=== PATIENT | male | born 1960 ===

== ENCOUNTER → 2018-03-06 | Outpatient (CLI) | payer MEDICARE ==
--- NOTE | 2018-03-06 13:22 | XR ---
EXAMINATION TYPE: XR chest 2V DATE OF EXAM: 03/06/2018 COMPARISON: 07/13/2014 HISTORY: Shortness of breath TECHNIQUE: Frontal and lateral views of the chest are obtained. FINDINGS: Scattered senescent parenchymal changes noted. No evidence for infiltrate. No evidence for atelectasis. Heart size is stable. Mediastinal structures are stable and grossly unremarkable. No evidence for hilar prominence. Degenerative changes dorsal spine. IMPRESSION: 1. No evidence for acute pulmonary disease.
== END | disposition home or self-care (01) ==
LOC: RADXRMAIN 12:46
PROVIDERS: ATTEND Family Medicine
DX: Z77.090 Contact with and (suspected) exposure to asbestos (principal)
CPT/HCPCS: 71046

== ENCOUNTER 2018-10-06 16:50 | Emergency (ER) | payer MEDICARE ==
[2018-10-06 17:28] VITALS: RESP 18
[2018-10-06 18:27] LABS: Basophils # (A) 0.1 k/uL (0-0.2); Basophils % (A) 1 %; Eosinophils # (A) 0.2 k/uL (0-0.7); Eosinophils % (A) 1 %; HCT 47.3 % (39.0-53.0); HGB 15.6 gm/dL (13.0-17.5); Lymphocytes # (A) 3.3 k/uL (1.0-4.8); Lymphocytes % (A) 21 %; MCH 30.4 pg (25.0-35.0); MCHC 33.1 g/dL (31.0-37.0); MCV 92.1 fL (80.0-100.0); Monocytes # (A) 0.9 k/uL (0-1.0); Monocytes % (A) 6 %; Neutrophils % (A) 70 %; Platelet Count 277 k/uL (150-450); RBC 5.14 m/uL (4.30-5.90); RDW 13.6 % (11.5-15.5); WBC 15.8 k/uL (3.8-10.6)
[2018-10-06 18:37] LABS: ALT 45 U/L (21-72); AST 30 U/L (17-59); Albumin 4.5 g/dL (3.5-5.0); Alkaline Phosphatase 78 U/L (38-126); Anion Gap 12 mmol/L; Blood Urea Nitrogen 10 mg/dL (9-20); Calcium 9.3 mg/dL (8.4-10.2); Carbon Dioxide 24 mmol/L (22-30); Chloride 102 mmol/L (98-107); Glucose 181 mg/dL (74-99); Potassium 4.7 mmol/L (3.5-5.1); Sodium 138 mmol/L (137-145); Total Bilirubin 0.3 mg/dL (0.2-1.3); Total Protein 7.3 g/dL (6.3-8.2)
[2018-10-06 18:56] VITALS: BP 166/90; PULSE 67; TEMP 98
--- NOTE | 2018-10-07 01:14 | ED ---
General Adult HPI - General Chief complaint: Recheck/Abnormal Lab/Rx Stated complaint: hypertension Source: patient, RN notes reviewed, old records reviewed Mode of arrival: EMS Limitations: no limitations - History of Present Illness Initial comments: 58-year-old male patient passed history including cardiovascular disease presented to ED via EMS with complaint of 30 minutes of acute eyes watering, rhinitis, salivation mouth. Patient was startled by these acute symptoms. Patient has previously had approximately 3 days of sinusitis symptoms including , sinus pressure, rhinitis. Patient denies any other symptoms during this episode including, chest pain, shortness of breath, difficulty breathing, changes in vision, focal weakness, unilateral weakness, abdominal pain, nausea vomiting diarrhea, diaphoresis. Systemic: Pt denies fatigue, myalgia, fever/chills, rash. Pt denies weakness, night sweats, weight loss. Neuro: Pt denies headache, visual disturbances, syncope or pre-syncope. HEENT: Pt denies ocular discharge or irritation, otalgia, rhinorrhea, pharyngitis or notable lymphadenopathy. Cardiopulmonary: Pt denies chest pain, SOB, heart palpitations, dyspnea on exertion. Abdominal/GI: Pt denies abdominal pain, n/v/d. : Pt denies dysuria, burning w/ urination, frequency/urgency. Denies new onset urinary or bowel incontinence. MSK: Pt denies myalgia, loss of strength or function in extremities. - Related Data Home Medications Medication Instructions Recorded Confirmed Aspirin EC [Ecotrin] 325 mg PO HS 07/13/14 10/06/18 Atorvastatin [Lipitor] 80 mg PO HS 07/13/14 10/06/18 Escitalopram [Lexapro] 20 mg PO DAILY PRN 07/13/14 10/06/18 Lisinopril [Zestril] 10 mg PO BID 07/13/14 10/06/18 Metoprolol Tartrate [Lopressor] 25 mg PO BID 07/13/14 10/06/18 Nitroglycerin Sl Tabs [Nitrostat] 0.4 mg SUBLINGUAL Q5M PRN 07/13/14 10/06/18 clonazePAM [KlonoPIN] 0.5 mg PO BID PRN 07/13/14 10/06/18 metFORMIN HCL [Glucophage] 500 mg PO BID 10/06/18 10/06/18 Allergies Allergy/AdvReac Type Severity Reaction Status Date / Time pollen Allergy congestion Uncoded 10/06/18 17:27 Review of Systems ROS Statement: Those systems with pertinent positive or pertinent negative responses have been documented in the HPI. ROS Other: All systems not noted in ROS Statement are negative. Past Medical History Past Medical History: Diabetes Mellitus, Hyperlipidemia, Hypertension, Myocardial Infarction ([place]) History of Any Multi-Drug Resistant Organisms: None Reported Past Surgical History: Heart Catheterization With Stent Past Psychological History: Depression Smoking Status: Current every day smoker Past Alcohol Use History: Occasional Past Drug Use History: Marijuana General Exam - General Exam Comments Initial Comments: Constitutional: NAD, AOX3, Pt has pleasant affect. HEENT: NC/AT, trachea midline, neck supple, no lymphadenopathy. Posterior pharynx non erythematous, without exudates. External ears appear normal, without discharge. Mucous membranes moist. Eyes PERRLA, EOM intact. There is no scleral icterus. No pallor noted. Cardiopulmonary: RRR, no murmurs, rubs or gallops, no JVD noted. Lungs CTAB in anterior and posterior juarez. No peripheral edema. Abdominal exam: Abdomen soft and non-distended. Abdomen non-tender to palpation in all 4 quadrants. Bowel sounds active in LLQ. No hepatosplenomegaly. Neuro: CN II-XII intact. MSK: No unilateral leg swelling. Homans sign negative bilaterally. Posterior tibialis pulse +2 bilaterally. Limitations: no limitations Course Vital Signs 10/06/18 10/06/18 10/06/18 16:50 17:32 18:55 Temperature 97.9 F 98.0 F Pulse Rate 67 69 67 Respiratory 18 18 18 Rate Blood Pressure 184/104 157/81 166/90 O2 Sat by Pulse 96 95 97 Oximetry Medical Decision Making - Medical Decision Making 58-year-old male patient passed history including cardiovascular disease presented to ED via EMS with complaint of 30 minutes of acute eyes watering, rhinitis, salivation mouth. Patient was startled by these acute symptoms. Patient has previously had approximately 3 days of sinusitis symptoms including , sinus pressure, rhinitis. Patient denies any other symptoms during this episode including, chest pain, shortness of breath, difficulty breathing, changes in vision, focal weakness, unilateral weakness, abdominal pain, nausea vomiting diarrhea, diaphoresis. Physical exam of patient did not reveal acute pathology, systems exam including neurological, HEENT, cardiopulmonary, abdominal, muscular skeletal. EKG of patient displayed a normal sinus rhythm, right bundle-branch block, left vesicular block, no concern for acute ischemia. This laboratory investigations, CBC CMP were ordered. Before the labs resulted, patient decided that his previous symptoms do not warrant continued evaluation, signed himself out AMA. Case discussed with Dr. Ramey. - Lab Data Result diagrams: 10/06/18 17:50 10/06/18 17:50 Lab Results 10/06/18 10/06/18 Range/Units 17:50 17:50 WBC 15.8 H (3.8-10.6) k/uL RBC 5.14 (4.30-5.90) m/uL Hgb 15.6 (13.0-17.5) gm/dL Hct 47.3 (39.0-53.0) % MCV 92.1 (80.0-100.0) fL MCH 30.4 (25.0-35.0) pg MCHC 33.1 (31.0-37.0) g/dL RDW 13.6 (11.5-15.5) % Plt Count 277 (150-450) k/uL Neutrophils % 70 % Lymphocytes % 21 % Monocytes % 6 % Eosinophils % 1 % Basophils % 1 % Neutrophils # 11.0 H (1.3-7.7) k/uL Lymphocytes # 3.3 (1.0-4.8) k/uL Monocytes # 0.9 (0-1.0) k/uL Eosinophils # 0.2 (0-0.7) k/uL Basophils # 0.1 (0-0.2) k/uL Sodium 138 (137-145) mmol/L Potassium 4.7 (3.5-5.1) mmol/L Chloride 102 (98-107) mmol/L Carbon Dioxide 24 (22-30) mmol/L Anion Gap 12 mmol/L BUN 10 (9-20) mg/dL Creatinine 0.72 (0.66-1.25) mg/dL Est GFR (CKD-EPI)AfAm >90 (>60 ml/min/1.73 sqM) Est GFR (CKD-EPI)NonAf >90 (>60 ml/min/1.73 sqM) Glucose 181 H (74-99) mg/dL Calcium 9.3 (8.4-10.2) mg/dL Total Bilirubin 0.3 (0.2-1.3) mg/dL AST 30 (17-59) U/L ALT 45 (21-72) U/L Alkaline Phosphatase 78 (38-126) U/L Total Protein 7.3 (6.3-8.2) g/dL Albumin 4.5 (3.5-5.0) g/dL - EKG Data -: EKG Interpreted by Me EKG Comments: 3. 66. [place] interval 158, QRS 132, QT/QTc 420/440, normal sinus rhythm, right bundle-branch block, left anterior vesicular block. Disposition Clinical Impression: Rhinitis Disposition: Left Against Medical Advice Condition: Good Is patient prescribed a controlled substance at d/c from ED?: No Referrals: Lisa Valdovinos MD [Primary Care Provider] - 1-2 days
== END 2018-10-06 18:57 | disposition left against medical advice (07) ==
LOC: EC 16:50
DX: J31.0 Chronic rhinitis (principal); I45.10 Unspecified right bundle-branch block; I44.60 Unspecified fascicular block; Z53.29 Procedure and treatment not carried out because of patient's decision for other reasons; E11.9 Type 2 diabetes mellitus without complications; E78.5 Hyperlipidemia, unspecified; I10 Essential (primary) hypertension; I25.2 Old myocardial infarction; F32.9 Major depressive disorder, single episode, unspecified; F17.200 Nicotine dependence, unspecified, uncomplicated; Z79.82 Long term (current) use of aspirin; Z79.84 Long term (current) use of oral hypoglycemic drugs; Z79.899 Other long term (current) drug therapy; Z91.048 Other nonmedicinal substance allergy status; Z95.5 Presence of coronary angioplasty implant and graft
CPT/HCPCS: 36415; 80053; 85025; 93005; 99284

== ENCOUNTER → 2023-06-06 | Outpatient (CLI) | payer MEDICARE ==
--- NOTE | 2023-06-06 09:46 | CTL ---
EXAMINATION TYPE: CT Low Dose Lung DATE OF EXAM ORDERED: 06/06/2023 HISTORY: 62-year-old male Z87.891, current smoker with 43 pack year history. Lung cancer screening CT DLP: 110.[address] CTDI: 3.0 mGy Automated exposure control for dose reduction was used. SCREENING VISIT: Baseline COMPARISON: Radiograph 03/06/2018 TECHNIQUE: Low dose computed tomography scan was performed through the chest with coronal and sagitta l reconstructions. CT DIAGNOSTIC QUALITY: Satisfactory FINDINGS: The heart is normal size with trace anterior pericardial fluid. Extensive three-vessel coronary arter y calcifications are present and are a marker for coronary artery disease. Moderate aortic valvular calcifications are present. Moderate atherosclerotic arch calcifications wit h conventional arch vessel branching anatomy. Possible moderate to severe narrowing of the proximal l eft subclavian artery and possible moderate at the origin of the left common carotid artery. There ma y also be severe narrowing at the origin of the right subclavian artery. 1 cm low right paratracheal lymph node. Otherwise, no thoracic lymphadenopathy by CT size criteria. Strandy areas of scarring or atelectasis. Mild diffuse bronchial wall thickening. Some subtle centril obular groundglass nodularity throughout the upper lungs. No consolidation or pleural effusion. Calcified granuloma at the lung bases. Minimal emphysematous change. There numerous scattered 5 mm and smaller bilateral pulmonary nodules. The largest 5 mm pulmonary nod ules are as follows: 5 mm posterior right lower lobe pulmonary nodule, axial image 170. 5 mm lateral right upper lobe pulmonary nodule, axial image 47. Visualized upper abdomen shows severe atherosclerotic calcifications and likely severe narrowing at t he SMA origin. Bones: Mild degenerative disc disease midthoracic spine. Some scattered posterior disc bulging is pre sent. IMPRESSION: 1. LungsRADS Category 2 (benign appearance or behavior, <1% chance of malignancy). Scattered 5 mm and smaller pulmonary nodules on baseline screening. 2. Minimal emphysematous change. Subtle centrilobular groundglass nodularity in the upper lungs may b e seen with smoking associated respiratory bronchiolitis. 3. CAD with extensive three-vessel coronary artery calcifications. 4. Possible moderate to severe proximal left subclavian artery stenosis. Possible moderate narrowing at the origin of the left common carotid artery. Also, possible severe narrowing at the origin of the right subclavian artery. CT LUNG RAD AND CT CHEST RECOMMENDATION: Lung-Rad 2 Benign Appearance or Behavior: Continue annual sc reening with LDCT in 12 months. S Modifier (other clinically significant findings): S, consider vascular evaluation to assess the deg ree of narrowing of the arch vessels.
== END | disposition home or self-care (01) ==
LOC: RADCTMAIN 07:24
PROVIDERS: ATTEND Internal Medicine Hematology & Oncology
DX: Z12.2 Encounter for screening for malignant neoplasm of respiratory organs (principal); I25.10 Atherosclerotic heart disease of native coronary artery without angina pectoris; R91.8 Other nonspecific abnormal finding of lung field; F17.210 Nicotine dependence, cigarettes, uncomplicated
CPT/HCPCS: 71271

== ENCOUNTER → 2023-09-17 | Outpatient (CLI) | payer MEDICARE ==
[2023-09-17 12:49] LABS: African American GFR (CKD) >90 (>60 ml/min/1.73 sqM); Blood Urea Nitrogen 13 mg/dL (9-20); Non-African American GFR(CKD) >90 (>60 ml/min/1.73 sqM)
--- NOTE | 2023-09-17 14:27 | CT ---
EXAMINATION TYPE: CT ChestAbdPelvis w con CT DLP: 1393.40 mGycm, Automated exposure control for dose reduction was used. DATE OF EXAM: 09/17/2023 2:18 PM COMPARISON: CT low-dose lung 06/06/2023 CLINICAL INDICATION:Male, 63 years old with history of C83.10 MANTLE CELL LYMPHOMA, UNSPECIFIED SITE; PHH, elevated white blood cells Technique: Multiple axial images of the chest, abdomen, and pelvis were obtained following the intrav enous administration of 100 mL Isovue-300. 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 Two-dimensional coronal and sagittal reconstructions were obtained. Findings: CHEST: LUNGS/ PLEURA: No pleural effusion, pneumothorax, focal consolidation. Few stable scattered pulmonary nodules with largest in the right upper lobe measuring up to 5 mm (series 4, image 15). Calcified gr anuloma within the right lung base. No new or enlarging pulmonary nodules. AIRWAY: Patent and unremarkable.. HEART: Size within normal limits. No pericardial effusion. Moderate to severe coronary artery calcifi cations. Aortic valvular calcifications. MEDIASTINUM: No pathologically enlarged mediastinal hilar lymph nodes greater than 1 cm short axis. VASCULATURE: No aortic aneurysm. Atherosclerotic calcification of the aorta and its branches. MUSCULOSKELETAL: No acute osseous abnormalities. No aggressive osseous lesion. SOFT TISSUES/LYMPH NODES: Unremarkable. LOWER NECK: No significant findings. ABDOMEN: ABDOMEN LIVER: Unremarkable GALLBLADDER AND BILE DUCTS: Unremarkable. PANCREAS: Unremarkable. SPLEEN: Unremarkable. ADRENAL GLANDS: Unremarkable. KIDNEYS AND URETERS: No evidence of hydronephrosis or renal calculus. The kidneys enhance symmetrical ly. Contrast is demonstrated within both collecting systems on the delayed phase. PELVIS BLADDER: Under distended, limiting evaluation. Mild circumferential wall thickening. REPRODUCTIVE: Prostate is enlarged in size measuring 6.3 cm in transverse dimension. ABDOMEN & PELVIS STOMACH AND BOWEL: Stomach and duodenum are unremarkable. Mild to moderate stool is present throughou t the colon. Enteric contrast reaches the distal small bowel. No evidence of bowel obstruction. PERITONEUM: No evidence of pneumoperitoneum or free fluid. VASCULATURE: Moderate atherosclerotic calcifications are present throughout the abdominal aorta and i ts branches. No abdominal aortic aneurysm. MUSCULOSKELETAL: No acute osseous abnormalities. No aggressive osseous lesion. LYMPH NODES: No gross evidence for lymphadenopathy. SOFT TISSUE/ABDOMINAL WALL: Unremarkable IMPRESSION: 1. No pathologic enlarged adenopathy within the chest, abdomen or pelvis. 2. Mild circumferential wall thickening of the urinary bladder which may related to cystitis versus c hronic outlet obstruction from prostatomegaly. Correlate with urinalysis. 3. Stable few scattered pulmonary nodules. No new or enlarging pulmonary nodules.
== END | disposition home or self-care (01) ==
LOC: RADCTMAIN 12:04
PROVIDERS: ATTEND Internal Medicine Hematology & Oncology
DX: C83.10 Mantle cell lymphoma, unspecified site (principal); I10 Essential (primary) hypertension; D72.829 Elevated white blood cell count, unspecified; F17.219 Nicotine dependence, cigarettes, with unspecified nicotine-induced disorders; R91.8 Other nonspecific abnormal finding of lung field; Z71.3 Dietary counseling and surveillance
CPT/HCPCS: 82565; 84520; 71260; 74177; 36415; Q9967

== ENCOUNTER → 2024-10-25 | Outpatient (CLI) | payer MEDICARE ==
--- NOTE | 2024-10-25 15:20 | CT ---
CT thorax with contrast HISTORY: Mantle cell, lymphoma COMPARISON: CT chest, abdomen and pelvis 09/17/2023. TECHNIQUE: Multiple axial images are obtained through the chest following IV contrast demonstration. FINDINGS: There are a few scattered stable micronodules. There is no new or suspicious lung mass or n odule. There is no airspace consolidation or abnormal interstitial density. There is no pleural effusion or pneumothorax. The great vessels the chest are normal and no mediastinal, hilar or axillary adenopathy. Limited scanning through the upper abdomen reveals no abnormality. No focal osseous lesions are seen. IMPRESSION: No evidence of recurrent or metastatic disease. No acute cardiopulmonary disease. [facility], Workstation: [facility], 10/25/2024 3:17 PM
== END | disposition home or self-care (01) ==
LOC: RADCTMAIN 14:18
PROVIDERS: ATTEND Internal Medicine Hematology & Oncology
DX: C83.10 Mantle cell lymphoma, unspecified site (principal); F17.219 Nicotine dependence, cigarettes, with unspecified nicotine-induced disorders; R91.1 Solitary pulmonary nodule; Z71.3 Dietary counseling and surveillance; I10 Essential (primary) hypertension; E11.9 Type 2 diabetes mellitus without complications
CPT/HCPCS: 71260; Q9967